=== PATIENT | male | born 2000 | race Caucasian/White ===

== ENCOUNTER 2022-06-23 13:07 | Emergency (ER) | payer OTHER, SELFPAY ==
[2022-06-23] VITALS (17 sets, daily range): BP systolic 120–141; BP diastolic 77–82; PULSE 38–57; RESP 3–29; TEMP 36.2; O2SAT 94–100
--- NOTE | ~2022-06-23 | CT_ITS ---
EXAMINATION: CT abdomen pelvis wo con DATE: 06/23/2022 15:50 INDICATION: rt flank pain TECHNIQUE: Computed tomography (CT) of the abdomen and pelvis was performed without intravenous contr ast. Automated exposure control and iterative reconstruction technique were employed. The dose-length product was 234.75 mGy-cm. COMPARISON: None. FINDINGS: Lower thorax: Unremarkable Liver: Normal. Biliary/Gallbladder: Gallbladder is normal. No bile duct dilation. Pancreas: No mass or duct dilation. Spleen: Normal. Adrenals:No mass. Kidneys: Punctate nonobstructing right lower pole calcification. Mild right ureterectasis. No suspici ous renal mass. GI tract: No small or large bowel dilation. Normal appendix. Mesentery/Peritoneum: No ascites, mass, or free air. Retroperitoneum: No mass. Pelvis: 2 mm stone in the distal right ureter just proximal to the right UVJ. Pelvic organs are other jeffers within normal limits. Soft Tissues: Soft tissues and body wall unremarkable. Bones: No acute osseous finding. IMPRESSION: 2 mm distal right ureteral calcification, causing mild obstructive uropathy Reviewed, dictated and finalized at location K.
[2022-06-23 13:32] LABS: Basophils Absolute Auto 0.1 K/mm3 (0.0-0.1); Basophils Percent Auto 0.3 % (0.2-1.2); Eosinophils Percent Auto 0.2 % (0-4.4); Hematocrit 43.2 % (42.0-52.0); Hemoglobin 14.2 g/dL (14.0-18.0); Immature Granulocyte Percent A 0.5 % (0-0.5); Lymphocytes Absolute Auto 2.02 K/mm3 (0.9-3.2); Lymphocytes Percent Auto 10.9 % (18.3-44.2); Mean Corpuscular HGB Conc 32.9 g/dl (32-36); Mean Corpuscular Hemoglobin 29.6 pg (26-34); Mean Corpuscular Volume 90.2 fl (80-100); Mean Platelet Volume 9.2 fl (7.4-10.4); Monocytes Absolute Auto 1.2 K/mm3 (0.1-0.6); Monocytes Percent Auto 6.3 % (2.6-8.5); Neutrophils Absolute Auto 15.1 K/mm3 (1.3-6.7); Neutrophils Percent Auto 81.8 % (45.5-73.1); Platelet Count Result 278 k/mm3 (150-375); Red Blood Count 4.79 M/mm3 (4.6-6.20); Red Cell Distribution Width 12.1 % (11.5-14.5); White Blood Count 18.5 K/mm3 (4.5-10.0)
[2022-06-23 13:37] LABS: Appearance Urine Clear (Clear); Bacteria Urine None Seen /hpf; Bilirubin Urine Negative (Negative); Blood Urine 3+ (Negative); Color Urine Yellow (Yellow); Glucose Urine UA Negative (Negative); Ketones Urine Trace mg/dL (Negative); Leukocyte Esterase Ur Negative LEU/UL (Negative); Nitrate Urine Negative (Negative); Protein Urine Trace mg/dL (Negative); RBC Urine >100 /hpf (0-2); Specific Grav Ur 1.023 (1.001-1.035); Squamous Epithelial Cell Urine None seen /hpf (Few); Urobilinogen Urine 0.2 mg/dL (<2.0); WBC Urine 0-5 /hpf; pH Urine 5.5 (5.0-9.0)
[2022-06-23 13:43] LABS: Alanine Aminotransferase 30 U/L (6-50); Albumin Level 4.8 g/dL (3.5-5.1); Alkaline Phosphatase 84 U/L (38-126); Anion Gap 8 mmol/L (8-16); Aspartate Amino Transferase 31 U/L (17-59); Bilirubin,Total 0.5 mg/dL (0.2-1.3); Blood Urea Nitrogen 15 mg/dL (9-20); Calcium 9.4 mg/dL (8.4-10.2); Carbon Dioxide 30 mmol/L (22-30); Chloride 102 mmol/L (98-107); Estimated CRCL calculation 111 ml/min; Estimated Glomerular Filt Rate > 60; Glucose 112 mg/dL (65-110); Lipase 78 U/L (23-300); Potassium 4.1 mmol/L (3.4-5.0); Sodium 140 mmol/L (137-145)
[2022-06-23 14:19] LABS: Add Urine Microscopic? YES
[2022-06-23] MEDS: SODIUM CHLORIDE 0.9% IV 1,000 ML 999 ML IV CONT (15:12)
[2022-06-23] MEDS: ONDANSETRON INJ 4 MG/2 ML VIAL IV PUSH (15:13)
[2022-06-23] MEDS: MORPHINE SULFATE (*CRX) 4 MG/ML INJ IV PUSH (15:17)
[2022-06-23] MEDS: KETOROLAC 15 MG/ML VIAL (*BKC) IV PUSH (17:04)
--- NOTE | 2022-06-23 17:38 | ED.GENADULT ---
HPI - General Adult General Chief complaint: Back Pain/Injury Stated complaint: Right FLANK pain Time Seen by Provider: 06/23/22 14:59 Source: patient and family Mode of arrival: ambulatory Limitations: no limitations History of Present Illness HPI narrative: 21-year-old otherwise healthy here with complaints of right-sided flank pain radiating into his right testicle which started this afternoon progressively getting worse. He states it is extremely nauseated. He denies any fever or chills . No history of blood in the urinel or trauma to the area. Related Data Allergies Allergy/AdvReac Type Severity Reaction Status Date / Time No Known Allergies Allergy Unverified 06/23/22 15:02 Review of Systems Review of Systems: All systems reviewed & are unremarkable except as noted in HPI and below Eyes: Eyes: Reports no additional eye complaints ENT: Reports system reviewed and no additional complaints, except as documented Cardiovascular: Cardiovascular: Reports no additional cardiovascular complaints Respiratory: Respiratory: Reports no additional respiratory complaints Gastrointestinal: Gastrointestinal: Reports as per HPI Genitourinary: Genitourinary: Reports as per HPI Musculoskeletal: Musculoskeletal: Reports no additional musculoskeletal complaints Integumentary/Breasts: Skin/Breast: Reports system reviewed and no additional complaints, except as docu Neurologic: Reports system reviewed and no additional complaints, except as documented Exam Narrative: GENERAL: Well-appearing, well-nourished, and in no acute distress. HEAD: Normocephalic, atraumatic. EYES: PERRLA and EOMI. NECK: Supple. CHEST: Clear to auscultation. No respiratory distress. HEART: Regular rate and rhythm. No murmur heard. Normal peripheral pulses. ABDOMEN: Soft, nontender, nondistended, normal active bowel sounds. no CVA tenderness EXTREMITIES: Normal range of motion. No edema. SKIN: Warm, dry, no rash. NEURO: No focal deficits. Alert and oriented x3. PSYCH: Normal mood and affect. Course Course Emergency Course: Patient was in moderate amount of pain, I did order 4 mg of morphine after receiving 2 mg he started having anxiety spells he then was a medicine for the, did obtain a CT of the abdomen and pelvis shows a 2 mm distal right ureteral stone . Patient noted that 50 mg of IV Toradol his pain is much improved. He feels comfortable going home. I did discuss lab work with the patient Vital Signs Vital signs: Vital Signs Temperature 36.2 C L 06/23/22 13:21 Pulse Rate 47 L 06/23/22 13:21 Respiratory Rate 18 06/23/22 13:21 Blood Pressure 120/77 06/23/22 13:21 Pulse Oximetry 100 06/23/22 13:21 Temperature 36.2 C L 06/23/22 13:21 Pulse Rate 47 L 06/23/22 13:21 Respiratory Rate 18 06/23/22 13:21 Blood Pressure 120/77 06/23/22 13:21 Pulse Oximetry 100 06/23/22 13:21 Medical Decision Making MDM Narrative Medical decision making narrative: 21-year-old with sudden onset of right flank pain radiating into his right testicle appears to be more kidney stone will start IV fluids control his pain with morphine and do lab work. Differential Diagnosis Differential Diagnosis: UTI, musculoskeletal pain, kidney stone Medical Records Medical records reviewed: Yes I reviewed the external patient's medical records. Vital Signs Vital Signs: Vital Signs Temperature 36.2 C L 06/23/22 13:21 Pulse Rate 47 L 06/23/22 13:21 Respiratory Rate 18 06/23/22 13:21 Blood Pressure 120/77 06/23/22 13:21 Pulse Oximetry 100 06/23/22 13:21 Temperature 36.2 C L 06/23/22 13:21 Pulse Rate 47 L 06/23/22 13:21 Respiratory Rate 18 06/23/22 13:21 Blood Pressure 120/77 06/23/22 13:21 Pulse Oximetry 100 06/23/22 13:21 Lab Data Lab results reviewed: Yes I reviewed the patient's lab results. 06/23/22 13:23 06/23/22 13:23 Labs: Lab Results 06/23/22 06/23/22
== END 2022-06-23 17:59 | disposition home or self-care (01) ==
PROVIDERS: Emergency Medicine; Emergency Provider Family Medicine
DX: N20.1 Calculus of ureter (principal)
CPT/HCPCS: 36415; 74176; 80053; 81001; 83690; 85025; 96361; 96374; 96375; 99284; J1885; J2270; J2405; J7030